=== PATIENT | female | born 1950 | race Two or more races ===

== ENCOUNTER 2021-01-08 07:33 | Day surgery (SDC) | payer MEDICARE, OTHER ==
[~2021-01-08] VITALS: Ht 154.9 cm; Wt 82.0 kg
[2021-01-08 08:57] VITALS: BP 150/87
[2021-01-08] MEDS ORDERED: MULT-658 PO (09:00)
[2021-01-08] MEDS ORDERED: NAPR220C2 PO (09:00)
[2021-01-08] MEDS ORDERED: HYDR-2214 PO (09:00)
[2021-01-08] MEDS ORDERED: CALC1CAP9 PO (09:00)
[2021-01-08] MEDS ORDERED: CEFAZOLIN PMX 1GM/50ML 50 ML ONE (09:03)
[2021-01-08] MEDS ORDERED: SODIUM CHLORIDE 0.9% 1,000 ML IV SCH (09:30)
[2021-01-08] MEDS ORDERED: CEFAZOLIN PMX 1GM/50ML 50 ML IV ONE (09:30)
[2021-01-08 09:48] LABS: INTERNATIONAL NORMALIZED RATIO 1.06 (0.93-1.1); PROTHROMBIN TIME 11.3 Seconds (9.6-11.5)
[2021-01-08] MEDS ORDERED: FLUMAZENIL 0.1 MG/1 ML, 5ML ONE (10:00)
[2021-01-08] MEDS ORDERED: FENTANYL PF 100 MCG/2ML ONE ×2 (10:00)
[2021-01-08] MEDS ORDERED: NALOXONE 1 MG/ML, 2ML ONE (10:00)
[2021-01-08] MEDS ORDERED: MIDAZOLAM 1 MG/ML, 5ML ONE (10:00)
[2021-01-08] MEDS ORDERED: LIDOCAINE 1%, 20ML ONE (10:03)
== END 2021-01-08 11:48 | disposition home or self-care (01) ==
LOC: OUT 07:33
PROVIDERS: ATTEND Internal Medicine Hematology & Oncology
DX: C50.812 Malignant neoplasm of overlapping sites of left female breast (principal); C79.51 Secondary malignant neoplasm of bone; E78.00 Pure hypercholesterolemia, unspecified; Z17.1 Estrogen receptor negative status [ER-]; Z79.01 Long term (current) use of anticoagulants; Z79.899 Other long term (current) drug therapy; Z90.49 Acquired absence of other specified parts of digestive tract; Z98.890 Other specified postprocedural states
CPT/HCPCS: 36415; 36561; 76937; 77001; 85610; 85730; 99156; 99157; C1788; C1894; J0690; J1642; J2250; J3010; J7030; J2310

== ENCOUNTER → 2021-03-05 | Outpatient (CLI) | payer MEDICARE, OTHER ==
[~2021-03-05] MED LIST: CALC1CAP9 PO; HYDR-2214 PO; MULT-658 PO; NAPR220C2 PO
== END | disposition home or self-care (01) ==
LOC: CFH 16:10
PROVIDERS: ATTEND Internal Medicine Hematology & Oncology
DX: C50.812 Malignant neoplasm of overlapping sites of left female breast (principal); R22.1 Localized swelling, mass and lump, neck
CPT/HCPCS: 76536